=== PATIENT | male | born 1950 | race Two or more races ===

== ENCOUNTER 2017-01-23 09:18 | Inpatient (IN) | payer MEDICARE, OTHER ==
[~2017-01-23] VITALS: Ht 170.2 cm; Wt 65.5 kg
[~2017-01-23 09:18] MED LIST: CLIN1CAP4
[2017-01-23 10:03] LABS: Urine Bilirubin Negative (Negative); Urine Color Yellow (Yellow); Urine Glucose Normal (Normal); Urine Ketone Negative (Negative); Urine Nitrite Negative (Negative); Urine RBC 5 /hpf (0 - 3); Urine Squamous Epithelial Cell FEW /hpf (<5); Urine Urobilinogen Normal (Negative)
[2017-01-23 10:07] LABS: Urine Blood 2+ /uL (Negative)
[2017-01-23] MEDS ORDERED: SODIUM CHLORIDE 0.9% 1,000 ML IV ONE (10:09)
[2017-01-23] MEDS ORDERED: DILTIAZEM HCL 25 MG/5 ML VIAL IV ONE (10:15)
[2017-01-23 10:47] LABS: Basophils # (auto) 0 uL; Basophils % (auto) 0.1 % (0.0-2.0); Eosinophils # (auto) 0.2 uL; Hematocrit 38.7 % (41.0-53.0); Hemoglobin 12.8 g/dL (13.5-17.5); Lymphocytes # (auto) 1.1 uL; Mean Corpuscular Hemoglobin 28.2 pg (28.0-32.0); Mean Corpuscular Hgb Conc. 33.2 g/dL (32.0-36.0); Mean Corpuscular Volume 85.1 fL (80.0-100.0); Mean Platelet Volume 9.7 fL (7.4-10.4); Monocytes # (auto) 0.5 uL; Monocytes % (auto) 6.8 % (0.0-12.0); Neutrophils % (auto) 76.1 % (37.0-80.0); Platelet Count (auto) 182 10^3/uL (140-450); Red Cell Distribution Width 15.6 % (11.6-16.0); White Blood Cell 7.9 10^3/uL (4.4-10.8)
[2017-01-23 11:14] LABS: BUN/Creatinine Ratio 19.5; Bilirubin, Total 0.2 mg/dL (0.2-1.0); Calcium 7.8 mg/dL (8.5-10.1); Magnesium 2.1 mg/dL (1.6-2.6); Potassium 3.7 mmol/L (3.5-5.1); Total Protein 6.4 g/dL (6.4-8.2)
[2017-01-23 11:29] LABS: INR 1.42 (0.9-1.15)
[2017-01-23] MEDS ORDERED: HYDROcodone-ACET 5/325MG TAB PO PRN (13:30)
[2017-01-23] MEDS ORDERED: TEMAZEPAM 15 MG CAP PO PRN (13:30)
[2017-01-23] MEDS ORDERED: LORazepam 0.5 MG TAB PO PRN (13:30)
[2017-01-23] MEDS ORDERED: NITROGLYCERIN 0.4 MG SL TAB SL PRN (13:30)
[2017-01-23] MEDS ORDERED: ACETAMINOPHEN 500 MG TAB PO PRN (13:30)
[2017-01-23] MEDS ORDERED: LACTULOSE 20Gm/30ML SOLN PO PRN (13:30)
[2017-01-23] MEDS ORDERED: PROMETHAZINE HCL 25 MG/ML 1ML IV PRN (13:30)
[2017-01-23] MEDS: METOPROLOL TARTRATE 25 MG TAB PO SCH ×2 (13:40→21:46)
[2017-01-23] MEDS ORDERED: ENOXAPARIN SOD 60 MG/0.6 ML SYRINGE SC SCH (13:40)
[2017-01-23] MEDS ORDERED: ASPirin 81 mg TAB PO ONE (13:45)
[2017-01-23] MEDS ORDERED: PANTOPRAZOLE 40 MG TAB PO ONE (13:45)
[2017-01-23] MEDS: SODIUM CHLORIDE 0.9% 1,000 ML IV SCH (14:02)
[2017-01-23] MEDS ORDERED: WARFARIN SODIUM 2.5 MG TAB PO ONE (17:00)
[2017-01-23] MEDS ORDERED: LISI2.5T47 PO (17:47)
[2017-01-23] MEDS ORDERED: ALFU10TA12 PO (17:47)
[2017-01-23] MEDS ORDERED: DABI150C PO (17:47)
[2017-01-23] MEDS ORDERED: METO25TA62 PO (17:47)
[2017-01-23] MEDS: DABIGATRAN 75 MG CAP PO SCH (21:44)
[2017-01-23 21:57] VITALS: BP 109/68
[2017-01-23] MEDS ORDERED: ATORVASTATIN 20 MG TAB PO SCH (22:00)
[2017-01-24 04:45] VITALS: BP 128/77
[2017-01-24 06:28] LABS: INR 1.1 (0.9-1.15); Partial Thromboplastin Time 38.5 sec (22.64-33.71)
[2017-01-24] MEDS: SODIUM CHLORIDE 0.9% 1,000 ML IV SCH ×3 (06:37→09:33)
[2017-01-24 09:00] VITALS: BP 116/80
[2017-01-24] MEDS: METOPROLOL TARTRATE 25 MG TAB PO SCH (09:33)
[2017-01-24] MEDS: DABIGATRAN 75 MG CAP PO SCH (09:34)
[2017-01-24] MEDS ORDERED: PANTOPRAZOLE 40 MG TAB PO SCH (10:00)
[2017-01-24] MEDS ORDERED: ASPirin 81 mg TAB PO SCH (10:00)
[2017-01-24 13:00] VITALS: BP 128/72
[2017-01-24 14:20] VITALS: BP 116/80
== END 2017-01-24 14:46 | disposition home or self-care (01) | DRG 308 ==
LOC: EDBD 09:18 → ER 09:24 → TELE 09:25 → EAST 16:50 → WEST WING 20:00
PROVIDERS: ADMIT Internal Medicine; ATTEND Family Medicine
DX: I48.91 Unspecified atrial fibrillation (principal); I50.21 Acute systolic (congestive) heart failure; E44.0 Moderate protein-calorie malnutrition; N40.0 Benign prostatic hyperplasia without lower urinary tract symptoms; F17.210 Nicotine dependence, cigarettes, uncomplicated; I11.0 Hypertensive heart disease with heart failure; R55 Syncope and collapse; I42.9 Cardiomyopathy, unspecified; R31.9 Hematuria, unspecified; Z91.14 Patient's other noncompliance with medication regimen; Z88.6 Allergy status to analgesic agent; Z79.2 Long term (current) use of antibiotics
CPT/HCPCS: 36415; 71010; 80053; 81001; 82550; 82607; 83735; 84443; 84484; 85025; 85379; 85610; 85652; 85730; 86141; 93005; 93306; 94761; 96360; 96361

== ENCOUNTER 2017-05-16 22:42 | Emergency (ER) | payer MEDICARE, OTHER ==
[~2017-05-16] VITALS: Ht 170.2 cm; Wt 65.8 kg
[~2017-05-16 22:42] MED LIST changes: +ALFU10TA12 PO; -CLIN1CAP4; +DABI150C PO; +LISI2.5T47 PO; +METO25TA62 PO
[2017-05-16 23:21] LABS: Basophils # (auto) 0 uL; Basophils % (auto) 0.7 % (0.0-2.0); Eosinophils # (auto) 0.3 uL; Hematocrit 37.8 % (41.0-53.0); Hemoglobin 12.9 g/dL (13.5-17.5); Lymphocytes # (auto) 1.5 uL; Lymphocytes % (auto) 22.9 % (10.0-50.0); Mean Corpuscular Hemoglobin 29.3 pg (28.0-32.0); Mean Corpuscular Volume 86.1 fL (80.0-100.0); Mean Platelet Volume 8.3 fL (6.9-10.8); Monocytes # (auto) 0.5 uL; Monocytes % (auto) 7.3 % (0.0-12.0); Neutrophils # (auto) 4.3 uL; Neutrophils % (auto) 65.1 % (37.0-80.0); Platelet Count (auto) 167 10^3/uL (140-450); Red Cell Distribution Width 16.1 % (11.8-14.3); White Blood Cell 6.5 10^3/uL (4.4-10.8)
[2017-05-16 23:37] LABS: INR 1.13 (0.9-1.15); Partial Thromboplastin Time 40.6 sec (22.64-33.71); Prothrombin Time 12.3 sec (9.37-12.3)
[2017-05-16 23:43] LABS: Albumin 3.4 g/dL (3.4-5.0); Anion Gap 7 (5-15); Aspartate Aminotransferase 10 U/L (15-37); BUN/Creatinine Ratio 21.8; Blood Urea Nitrogen 17 mg/dL (7-18); Calcium 8.8 mg/dL (8.5-10.1); Carbon Dioxide 27 mmol/L (21-32); Chloride 109 mmol/L (98-107); GFR African American 127 mL/min; GFR Non-African American 105 mL/min; Glucose 114 mg/dL (74-106); Potassium 4.2 mmol/L (3.5-5.1); Sodium 143 mmol/L (136-145)
[2017-05-16 23:48] LABS: Alkaline Phosphatase 85 U/L (45-117); Bilirubin, Total 0.2 mg/dL (0.2-1.0); Total Protein 6.3 g/dL (6.4-8.2)
[2017-05-16 23:52] LABS: B-Type Natriuretic Peptide 29.01 pg/mL (0-100)
[2017-05-16 23:56] LABS: Temperature: 21.9 C (20.0-25.0)
[2017-05-17 01:13] VITALS: BP 112/74
== END 2017-05-17 02:47 | disposition home or self-care (01) ==
LOC: EDBD 22:42 → ER 22:46
DX: J18.9 Pneumonia, unspecified organism (principal); R53.1 Weakness; I48.91 Unspecified atrial fibrillation; I10 Essential (primary) hypertension; F17.210 Nicotine dependence, cigarettes, uncomplicated; F12.10 Cannabis abuse, uncomplicated; Z88.6 Allergy status to analgesic agent
CPT/HCPCS: 36415; 70450; 71010; 80053; 83880; 84484; 85025; 85610; 85730; 93005; 94761

== ENCOUNTER 2017-10-24 17:48 | Emergency (ER) | payer OTHER ==
[~2017-10-24] VITALS: Ht 170.2 cm; Wt 59.0 kg
[2017-10-24 18:32] LABS: Basophils # (auto) 0 uL; Basophils % (auto) 0.4 % (0.0-2.0); Eosinophils # (auto) 0.3 uL; Eosinophils % (auto) 2.4 % (0.0-7.0); Hemoglobin 12.4 g/dL (13.5-17.5); Lymphocytes # (auto) 1.4 uL; Lymphocytes % (auto) 13.3 % (10.0-50.0); Mean Corpuscular Hemoglobin 27.9 pg (28.0-32.0); Mean Corpuscular Hgb Conc. 32.6 g/dL (32.0-36.0); Mean Corpuscular Volume 85.4 fL (80.0-100.0); Monocytes # (auto) 0.6 uL; Neutrophils # (auto) 8.4 uL; Neutrophils % (auto) 77.9 % (37.0-80.0); Platelet Count (auto) 234 10^3/uL (140-450); Red Blood Cells 4.46 10^6/uL (4.5-5.90); Red Cell Distribution Width 14.7 % (11.8-14.3); White Blood Cell 10.7 10^3/uL (4.4-10.8)
[2017-10-24 18:35] VITALS: BP 104/74
[2017-10-24] MEDS ORDERED: SODIUM CHLORIDE 0.9% 1,000 ML IVB ONE (18:35)
[2017-10-24 18:42] LABS: Alanine Aminotransferase 26 U/L (16-61); Albumin 3.3 g/dL (3.4-5.0); Anion Gap 5 (5-15); Aspartate Aminotransferase 25 U/L (15-37); BUN/Creatinine Ratio 17.2; Blood Urea Nitrogen 15 mg/dL (7-18); Calcium 7.9 mg/dL (8.5-10.1); Carbon Dioxide 25 mmol/L (21-32); Chloride 111 mmol/L (98-107); GFR African American 112 mL/min; GFR Non-African American 93 mL/min; Glucose 94 mg/dL (74-106); Potassium 4.3 mmol/L (3.5-5.1); Sodium 141 mmol/L (136-145)
[2017-10-24 18:43] LABS: Urine Bacteria NONE SEEN /hpf (None Seen); Urine Blood Negative /uL (Negative); Urine Specific Gravity 1.006 (1.001-1.035); Urine WBC 7 /hpf (0 - 3)
[2017-10-24] MEDS ORDERED: ASPirin 81 mg TAB PO ONE (18:45)
[2017-10-24 18:47] LABS: Alkaline Phosphatase 126 U/L (45-117); Bilirubin, Total 0.2 mg/dL (0.2-1.0); Total Protein 7.1 g/dL (6.4-8.2)
[2017-10-24 19:14] LABS: INR 1.12 (0.9-1.15); Partial Thromboplastin Time 46.5 sec (22.64-33.71); Prothrombin Time 12.2 sec (9.37-12.3)
== END 2017-10-24 21:23 | disposition left against medical advice (07) ==
LOC: EDBD 17:48 → ER 17:55
DX: R42 Dizziness and giddiness (principal); R53.1 Weakness; I49.9 Cardiac arrhythmia, unspecified; I10 Essential (primary) hypertension; I48.91 Unspecified atrial fibrillation; F17.210 Nicotine dependence, cigarettes, uncomplicated; Z79.01 Long term (current) use of anticoagulants; Z88.6 Allergy status to analgesic agent
CPT/HCPCS: 36415; 71045; 80053; 81001; 84484; 85025; 85610; 85730; 93005; 96360; 99291